=== PATIENT | male | born 1975 | race Two or more races ===

== ENCOUNTER 2017-07-29 16:33 | Emergency (ER) | payer OTHER, BC ==
[2017-07-29 16:40] VITALS: BP 139/84
[2017-07-29] MEDS ORDERED: ACETAMINOPHEN 325 MG TABLET PO ONE (17:03)
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
== END 2017-07-29 17:51 | disposition home or self-care (01) ==
LOC: ER 16:33
DX: S29.012A Strain of muscle and tendon of back wall of thorax, initial encounter (principal); M54.2 Cervicalgia; R07.89 Other chest pain; V49.40XA Driver injured in collision with unspecified motor vehicles in traffic accident, initial encounter
CPT/HCPCS: 71046; 99284